=== PATIENT | female | born 1995 | race Caucasian/White ===

== ENCOUNTER → 2017-09-22 | Outpatient (CLI) | payer BC ==
[~2017-09-22] MED LIST: AMITRIPTYLINE H25 M1 PO; MICROGESTIN 1/21 TAB PO; MIRALAX PA17 GM/Dose PO; MOBIC 7.5MG7.5 MG PO; SENNA SOFT15 MG PO; TOPAMAX 25MG25 M1 PO; ZANTAC 150MG T150 MG PO
== END ==
LOC: COL.RAD 10:18
DX: J32.0 Chronic maxillary sinusitis (principal); J02.9 Acute pharyngitis, unspecified